=== PATIENT | male | born 1975 | race Caucasian/White ===

== ENCOUNTER 2022-12-17 15:47 | Outpatient (REF) | payer BC, SELFPAY ==
[2022-12-17 19:16] LABS: Abs Immature Grans 0.02 10^3/uL (0.0-0.06); Absolute Basophil Count 0.05 10^3/uL (0.0-0.2); Absolute Eosinophil Count 0.46 10^3/uL (0.0-0.7); Absolute Lymphocyte Count 2.19 10^3/uL (1.2-3.4); Absolute Monocyte Count 0.65 10^3/uL (0.1-0.8); Basophils % 0.7; Eosinophils % 6.6; HCT 46.4 % (40.0-50.0); HGB 15.5 g/dL (13.5-17.5); Immature Grans % 0.3; Lymphocytes % 31.4; MCHC 33.4 % (32.0-36.0); MCV 90 fL (80-95); MPV 10.5 fL (8.0-11.0); Monocytes % 9.3; Neutrophils % 51.7; Platelet Count 280 10^3/uL (130-400); RBC 5.17 10^6/uL (4.36-5.78); RDW 12.4 % (11.8-14.1); RDW-SD 40.8 fL; WBC 6.97 10^3/uL (4.4-10.8)
[2022-12-17 19:47] LABS: ALT 36 U/L (16-63); AST 24 U/L (15-37); Albumin 4.5 g/dL (3.4-5.0); Anion Gap 8.4 mmol/L (3-11); BUN 15 mg/dL (7-18); Bilirubin, Total 0.8 mg/dL (0.2-1.0); CO2 29.6 mmol/L (21.0-32.0); CREATININE 1.2 mg/dL (0.70-1.30); Calcium 9.5 mg/dL (8.5-10.1); Calculated LDL 118 mg/dL (<100); Chloride 102 mmol/L (98-107); Cholesterol 194 mg/dL (<200); Glucose 101 mg/dL (74-106); HDL Cholesterol 53 mg/dL (40-60); Potassium 4.6 mmol/L (3.5-5.1); Sodium 140 mmol/L (136-145); TSH (W/Ref FT4) 1.68 uIU/mL (0.36-3.74); Total Protein 7.8 g/dL (6.4-8.2); Triglyceride 118 mg/dL (<150)
[2022-12-17 20:31] LABS: Alkaline Phosphatase 55 U/L (46-116)
== END 2022-12-17 15:48 | disposition home or self-care (01) ==
LOC: NCHCN 15:47
PROVIDERS: Visit Provider Nurse Practitioner Family
DX: Z00.00 Encounter for general adult medical examination without abnormal findings (principal); Z13.220 Encounter for screening for lipoid disorders; F41.8 Other specified anxiety disorders; F17.201 Nicotine dependence, unspecified, in remission; F12.11 Cannabis abuse, in remission; Z12.11 Encounter for screening for malignant neoplasm of colon
CPT/HCPCS: 80053; 80061; 84443; 85025

== ENCOUNTER 2023-09-01 16:35 | Emergency (ER) | payer BC, SELFPAY ==
--- NOTE | 2023-09-01 16:45 | DI.RAD_ITS ---
Exam(s) XR HUMERUS RT EXAM: XR HUMERUS RT CLINICAL HISTORY: L pain around radial groove of humerus. TECHNIQUE: 2D digital imaging was performed. COMPARISON: CR XR ELBOW RT COMPLETE from 09/01/2023 FINDINGS: BONES: No acute fracture is present. No bony destructive lesion is seen. Visualized portion of elbow and shoulder joints are unremarkable. SOFT TISSUE: Normal. IMPRESSION: Unremarkable radiographs of the right humerus. DATA REPOSITORY: RADIATION DOSE DELIVERED:
--- NOTE | 2023-09-01 16:45 | DI.RAD_ITS ---
Exam(s) XR ELBOW RT COMPLETE EXAM: XR ELBOW RT COMPLETE CLINICAL HISTORY: R elbow pain, fell into concrete wall. TECHNIQUE: 2D digital imaging was performed. Three views. COMPARISON: No exams were available for comparison FINDINGS: BONES: No acute fracture is present. No bony destructive lesion is seen. JOINTS: The elbow is normally aligned. No joint effusion is seen. SOFT TISSUE: Normal. IMPRESSION: Unremarkable radiographs of the right elbow. DATA REPOSITORY: RADIATION DOSE DELIVERED:
[2023-09-01 16:46] VITALS: BP 107/82; PULSE 64; RESP 18; TEMP 36.6; O2SAT 99
--- NOTE | 2023-09-01 18:02 | ED.GENADUL_ITS ---
Discharge Plan Disposition Patient Disposition: Home Condition: Stable Discharge Details Clinical Impression: Contusion of right arm Primary Care Provider: None,None ED Provider: Herb Malik Home Meds and New Rx's Prescriptions: No Action sertraline [Zoloft] 50 mg tablet 50 mg PO DAILY methylphenidate HCl [Concerta] 18 mg tablet extended release 24hr 18 mg PO DAILY Discharge Instructions Instructions: Contusion in Adults (ED) Additional Instructions: You were seen in the emergency department for the likely soft tissue contusions of your right arm, this is likely pressing on your radial nerve at the posterior humerus. Please rest, ice, compress and elevate the arm often for the next few days. Please use therapeutic dosing of Tylenol (acetamenophen) & Advil (ibuprofen) in an alternating fashion as follows: Take 1000mg of Tylenol every 6 hours without missing doses- that is 4 times per day. Intermediate in between the Tylenol dosings, take 400-600mg of Advil also on a 6 hour schedule, that is also 4 times per day. The daily maximum dosing of Tylenol is 4000mg, and the daily maximum dosing of Advil is 2400mg. This is safe to do for weeks. Please note that some common cold medications & prescription pain medications may contain acetamenophen and you need to read OTC drug labels and factor that in to maximum daily dosings. You may need to follow-up with orthopedics for any range of motion deficits or persistent pain past 2 weeks, please return to the ER for any signs of neurovascular compromise of the right upper extremity Referrals: [facility] [Provider Group] Discharge Data Discharge Date/Time-TO BE ENTERED AT DEPARTURE: 09/01/23 18:36 HPI General Date/Time Provider Initiated Documentation: 09/01/23 16:52 . HPI Narrative: 48 year-old male presents to ED today by POV/ambulating with a chief complaint of fall into concrete wall- R arm pain, minor abrasion to R thumb with onset just prior to arrival. Quality described as R arm pain at radial groove of humerus and to elbow with tingling, no deficit in ROM or strength, denies head trauma, no radiation to deformity, swelling, bruising, headstrike, LOC, nausea. Severity is described as 7/10. Palliating factors include nothing specific attempted yet. Provoking factors include nothing specific. Patient not anticoagulated. Related Data Home Medications Medication Instructions Recorded Confirmed methylphenidate HCl 18 mg 18 mg PO DAILY 05/04/23 09/01/23 tablet,extended release 24 hr (Concerta) sertraline 50 mg tablet (Zoloft) 50 mg PO DAILY 05/04/23 09/01/23 Allergies Allergy/AdvReac Type Severity Reaction Status Date / Time Penicillins Allergy Unknown Verified 05/04/23 15:24 General Stated Complaint: Orthopedic ELIANE: 4 Review of Systems All systems reviewed & are unremarkable except as noted in HPI and below Exam Narrative Exam Narrative: GENERAL APPEARANCE: Well-nourished, non-toxic, awake and alert, atraumatic, no acute distress. SKIN: Warm, pink, dry, intact, without rashes/lesions/ulcerations. HEAD: Normocephalic, atraumatic, normal hair distribution for gender/age. EYES: Pupils PERRLA, EOMs intact without nystagmus, normal conjunctiva, no exudates on lids/lashes. ENT: Nares patent, no circumoral cyanosis, no facial swelling NECK: Supple, trachea midline, painless cervical ROM. LUNGS/CHEST: Non-labored respirations, normal A/P diameter, symmetrical expansion, no chest wall deformity HEART (CV/PV): Regular rate, R radial pulse 2+, no peripheral edema, no JVD. ABDOMEN: Soft, non-distended, no guarding. MSK: Normal ROM, no swelling/deformity to bilateral UEs or LEs, moving all extremities without weakness, no cyanosis, spine midline without tenderness, normal curvature. R UE: Tenderness to palpation at the right radial groove of the humerus as well as to the elbow without crepitus, range of motion is intact, room service runner strength 5/5, sensation intact in the distal right upper extremity, no deformity or large swelling or erythema or ecchymosis, no shoulder tenderness, no right lateral neck pain or tenderness NEURO: Mental Status AAOx4 - alert to person, place, time, events No facial droop, no forehead involvement. Motor: No focal weakness - strength 5/5 in bilateral UEs and LEs, proximal and distal, symmetric. Sensory: sensation intact to light touch globally. Gait normal: patient ambulated without ataxia into ED room. PSYCH: euthymic, cooperative, pleasant, appropriate speech Course Vital Signs Vital signs: Vital Signs Temperature 36.6 C 09/01/23 16:46 Pulse 64 09/01/23 16:46 Respiratory Rate 18 09/01/23 16:46 Blood Pressure 107/82 09/01/23 16:46 Pulse Oximetry 99 09/01/23 16:46 Temperature 36.6 C 09/01/23 16:46 Temperature Source Temporal Artery Scan 09/01/23 16:46 Pulse 64 09/01/23 16:46 Respiratory Rate 18 09/01/23 16:46 Respiratory Effort Normal, Non-Labored 09/01/23 16:50 Blood Pressure 107/82 09/01/23 16:46 Blood Pressure Position Sitting 09/01/23 16:46 Pulse Oximetry 99 09/01/23 16:46 Oxygen Delivery Method Room Air 09/01/23 16:46 Oxygen Flow Rate 0 09/01/23 16:46 Pain Level 7 09/01/23 17:25 Medical Decision Making This dictation utilizes [id number] dictation software and may contain unedited grammatical errors. 48 y/o M presents to ED today with a chief complaint of R arm pain, R-hand dominant, fell into a concrete wall, smacking his R arm on the wall, having some tingling- no overt deformity. Patient also has a minor abrasion to R thumb. Patients' medical history: negative, otherwise healthy. Family and social his tory: noncontributory. Pertinent exam findings / vital signs include R UE: Tenderness to palpation at the right radial groove of the humerus as well as to the elbow without crepitus, range of motion is intact, room service runner strength 5/5, sensation intact in the distal right upper extremity, no deformity or large swelling or erythema or ecchymosis, no shoulder tenderness, no right lateral neck pain or tenderness. Differential / pathologies of concern include Sprain/Strain, Contusion, Fracture, Abrasion. Diagnostic studies of: -XR R Humerus, XR R Elbow - no acute fractures seen. Interventions of: -offered sling for part-time use, refused. Refused APAP/NSAIDs, refused any repair to minor abrasion, provided bandaging supplies. ED Course/Assessment/Plan: Patient fell onto a cement wall and has right upper arm pain around the humerus and elbow without fracture on x-ray, he has pain at the radial groove which causes pain down the arm I suspect he has contusion and soft tissue swelling that is causing this radicular symptom, he has no tenderness or radiating pain with palpation of the shoulder and brachial plexus from the lateral neck, there is no crepitus at the elbow, he is neurovascularly intact in the right hand, has a minor 0.5 cm abrasion to the right thumb that he refused any intervention on, he will use simple bandages at home. Findings not consistent with fracture, NV compromise. Disposition of Contusion of Right Arm. Patient verbalized understanding of the plan and return to ED criteria and engaged in shared decision making. Medical Records Medical records reviewed: Yes I reviewed the patient's medical records. Imaging Data Radiologic Study: Attestation: I personally reviewed and interpreted this imaging study as follows: Imaging: X-Ray Radiologist's impression: EXAM: XR ELBOW RT COMPLETE CLINICAL HISTORY: R elbow pain, fell into concrete wall. TECHNIQUE: 2D digital imaging was performed. Three views. COMPARISON: No exams were available for comparison FINDINGS: BONES: No acute fracture is present. No bony destructive lesion is seen. JOINTS: The elbow is normally aligned. No joint effusion is seen. SOFT TISSUE: Normal. IMPRESSION: Unremarkable radiographs of the right elbow. Radiologic Study #2: Attestation: I personally reviewed and interpreted this imaging study as follows: Imaging: X-Ray Radiologist's impression: EXAM: XR HUMERUS RT CLINICAL HISTORY: L pain around radial groove of humerus. TECHNIQUE: 2D digital imaging was performed. COMPARISON: CR XR ELBOW RT COMPLETE from 09/01/2023 FINDINGS: BONES: No acute fracture is present. No bony destructive lesion is seen. Visualized portion of elbow and shoulder joints are unremarkable. SOFT TISSUE: Normal. IMPRESSION: Unremarkable radiographs of the right humerus. Quality:SDOH Health Related Social Needs: No Data to Display PFSH All Active Problems (Updated 09/01/23 @ 18:22 by NADIA Saavedra) Contusion of right arm (Acute) Chronic fatigue (Acute) Constipation, chronic (Acute) History of hemorrhoids (Acute) Medical History (Updated 09/01/23 @ 18:22 by NADIA Saavedra) Anxiety and depression Nicotine dependence in remission Social History Smoking/Tobacco Use Status: Current every day Smoking risk assessment performed?: Yes Alcohol Intake: never Drug use: Occasionally Substance use type: marijuana Housing: house Do you feel safe at home: Yes Do you feel safe in your relationship?: Yes
== END 2023-09-01 18:36 | disposition home or self-care (01) ==
PROVIDERS: Emergency Provider Physician Assistant
DX: S40.021A Contusion of right upper arm, initial encounter; S60.311A Abrasion of right thumb, initial encounter; W22.01XA Walked into wall, initial encounter; Y93.01 Activity, walking, marching and hiking; Y92.89 Other specified places as the place of occurrence of the external cause
CPT/HCPCS: 99283; 73060; 73080